=== PATIENT | female | born 1985 | race African-American/Black ===

== ENCOUNTER 2016-04-11 11:45 | Emergency (ER) | payer MEDICAID, OTHER ==
[~2016-04-11] VITALS: Ht 160 cm; Wt 65.9 kg
[2016-04-11 11:47] VITALS: BP 125/73; PULSE 78; RESP 18; TEMP 97.4; O2SAT 98
--- NOTE | 2016-04-11 11:53 | PD ---
Physical Exam Time Seen by Provider: 11:50 Narrative 30 year old female presents to the ED for evaluation of vaginal bleeding since Mar 28 with previous menses 03/16-03/24. Pt is have lower abdominal pain with urinary frequency. No burning of urgency. No significant medical history . Pt states she has history of tubal ligation 01/2013. Fever 101 last night with chills. Nausea and vomiting started last night as well. Pt is sexually active in a monogamous relationship. Data Data Last Documented VS Vital Signs Date Time Temp Pulse Resp B/P Pulse Ox O2 Delivery O2 Flow Rate FiO2 04/11/16 11:47 97.4 78 18 125/73 98 Room Air Orders Basic Metabolic Panel (Bmp) (04/11/16 11:53) Beta Hcg (Quant/Titer) (04/11/16 11:53) Complete Blood Count With Diff (04/11/16 11:53) Prothrombin Time / Inr (Pt) (04/11/16 11:53) Act Partial Throm Time (Ptt) (04/11/16 11:53) Urinalysis - C+S If Indicated (04/11/16 11:53) Ed Urine Pregnancytest Poc (04/11/16 11:53) Type And Screen (04/11/16 11:53) Urine Culture (04/11/16 12:10) Us Pelvis Comp Crimping Machine Operator For Metal/Non-Preg (04/11/16 ) Ketorolac Inj (Toradol Inj) (04/11/16 16:15) Labs Laboratory Tests Test 04/11/16 12:10 White Blood Count 3.8 TH/MM3 Red Blood Count 4.04 MIL/MM3 Hemoglobin 12.0 GM/DL Hematocrit 36.0 % Mean Corpuscular Volume 89.2 FL Mean Corpuscular Hemoglobin 29.6 PG Mean Corpuscular Hemoglobin 33.2 % Concent Red Cell Distribution Width 14.2 % Platelet Count 322 TH/MM3 Mean Platelet Volume 7.4 FL Neutrophils (%) (Auto) % Lymphocytes (%) (Auto) % Monocytes (%) (Auto) % Eosinophils (%) (Auto) % Basophils (%) (Auto) % Neutrophils # (Auto) TH/MM3 Lymphocytes # (Auto) TH/MM3 Monocytes # (Auto) TH/MM3 Eosinophils # (Auto) TH/MM3 Basophils # (Auto) TH/MM3 CBC Comment AUTO DIFF Differential Total Cells 100 Counted Neutrophils % (Manual) 53 % Lymphocytes % 30 % Monocytes % 12 % Eosinophils % 4 % Basophils % 1 % Neutrophils # (Manual) 2.0 TH/MM3 Differential Comment FINAL DIFF MANUAL Platelet Estimate NORMAL Platelet Morphology Comment NORMAL Prothrombin Time 11.6 SEC Prothromb Time International 1.0 RATIO Ratio Activated Partial 27.3 SEC Thromboplast Time Urine Color RED Urine Turbidity HAZY Urine pH 6.5 Urine Specific [place] 1.019 Urine Protein 100 mg/dL Urine Glucose (UA) NEG mg/dL Urine Ketones NEG mg/dL Urine Occult Blood MOD Urine Nitrite NEG Urine Bilirubin NEG Urine Urobilinogen LESS THAN 2.0 MG/DL Urine Leukocyte Esterase TRACE Urine RBC /hpf Urine WBC 31 /hpf Urine Squamous Epithelial 7 /hpf Cells Urine Bacteria RARE /hpf Microscopic Urinalysis Comment CULTURE INDICATED Sodium Level 141 MEQ/L Potassium Level 3.7 MEQ/L Chloride Level 108 MEQ/L Carbon Dioxide Level 25.2 MEQ/L Anion Gap 8 MEQ/L Blood Urea Nitrogen 9 MG/DL Creatinine 0.63 MG/DL Estimat Glomerular Filtration 111 ML/MIN Rate Random Glucose 83 MG/DL Calcium Level 8.8 MG/DL Human Chorionic Gonadotropin, LESS THAN 1 Quant MIU/ML Blood Type O POSITIVE Antibody Screen NEGATIVE Blood Bank Comment [facility] Medical Record Reviewed: Yes Supervised Visit with MAJOR: No Narrative Course Work up initiated in triage. Scripts Phenazopyridine (Pyridium)100 Mg [id number] Mg PO Q8H PRN (DYSURIA) #20 TAB Ref 0 Prov:Nancy OrdoñezP 04/11/16 Ibuprofen 800 Mg [id number] Mg PO Q6HR PRN (PAIN) #30 TAB Ref 0 Prov:Nancy OrdoñezP 04/11/16 Medroxyprogesterone Acetate (Provera)10 Mg Tab10 Mg PO DAILY #10 TAB Ref 0 Start day 16 Prov:Nancy OrdoñezP 04/11/16 Cephalexin (Keflex)500 Mg [id number] Mg PO Q12H 7 Days Ref 0 Prov:Nancy Ordoñez 04/11/16 Condition: Stable Carmen Padron Apr 11, 2016 11:53
[2016-04-11 12:34] LABS: MEAN CELL VOLUME 89.2 FL (80.0-100.0); MEAN CORPUSCULAR HEMOGLOBIN 29.6 PG (27.0-34.0); MEAN CORPUSCULAR HGB CONC 33.2 % (32.0-36.0); PLATELET COUNT 322 TH/MM3 (150-450); RED BLOOD COUNT 4.04 MIL/MM3 (4.00-5.30); RED CELL DISTRIBUTION WIDTH 14.2 % (11.6-17.2); WHITE BLOOD COUNT 3.8 TH/MM3 (4.0-11.0)
[2016-04-11 12:38] LABS: BACTERIA, URINE RARE /hpf; BLOOD, URINE MOD (NEG); GLUCOSE,URINE NEG (NEG); HEMO FLAGS AUTO DIFF; KETONE, URINE NEG (NEG); NITRITE,URINE NEG (NEG); PH, URINE 6.5 (5.0-8.5); SQUAMOUS EPITHELIAL CELL URINE 7 /hpf (0-5)
[2016-04-11 12:41] LABS: APTT (PATIENT) 27.3 SEC (24.3-30.1); COMMENT (UR) CULTURE INDICATED; CULTURE IF INDICATED CULTURE INDICATED; PROTHROMBIN TIME - PATIENT 11.6 SEC (9.8-11.6); URINE COLOR RED (YELLW/STRAW)
[2016-04-11 12:54] LABS: ANION GAP 8 MEQ/L (5-15); BICARBONATE 25.2 MEQ/L (21.0-32.0); BLOOD UREA NITROGEN 9 MG/DL (7-18); CHLORIDE 108 MEQ/L (98-107); GLOMERULAR FILTRATION RATE 111 ML/MIN (>89); POTASSIUM 3.7 MEQ/L (3.5-5.1); SODIUM (NA) 141 MEQ/L (136-145)
[2016-04-11 12:56] LABS: BETA HCG QUANT LESS THAN 1 MIU/ML (0-5)
[2016-04-11 13:14] LABS: BASOPHILS 1 % (0-2); EOSINOPHILS 4 % (0-4); PLATELET ESTIMATE SMEAR NORMAL (NORMAL); PLATELET MORPHOLOGY NORMAL (NORMAL); POLYS (SEG NEUTROPHILS) 53 % (16-70); SCAN/DIFF FINAL DIFF MANUAL; WBC DIFF SAMPLE 100
--- NOTE | 2016-04-11 14:45 | RADRPT ---
EXAM DATE/TIME: 04/11/2016 14:03 [facility] COMPARISON: No previous studies available for comparison. INDICATIONS : Bleeding. MEDICAL HISTORY : Bleeding. SURGICAL HISTORY : Tubal ligation. section. Cholecystectomy. Ovarian cyst removal. ENCOUNTER: Initial ACUITY: 2 weeks PAIN SCORE: 7/10 LOCATION: Bilateral pelvis MEASUREMENTS: UTERUS: 6.6 x 4.9 x 4.9 cm ENDOMETRIAL STRIPE: 1 mm RIGHT OVARY: 2.1 x 1.2 x 1.1 cm LEFT OVARY: 3.1 x 1.7 x 1.6 cm FINDINGS: UTERUS: The myometrium has homogeneous echotexture without mass. RIGHT OVARY: Ovary contains no mass or significant cystic lesion. LEFT OVARY: Ovary contains no mass or significant cystic lesion. MISCELLANEOUS: No free fluid. CONCLUSION: The endometrium appears atrophic. The exam is otherwise unremarkable. Tressa Otero MD on April 11, 2016 at 14:42 Board Certified Radiologist. This report was verified electronically.
--- NOTE | 2016-04-11 16:01 | PD ---
HPI Chief Complaint: Surgical Coordinator Problem/Complaint Time Seen by Provider: 16:01 Travel History International Travel<30 days: No Contact w/Intl Traveler<30days: No Traveled to known affect area: No History of Present Illness HPI 30-year-old female presents to the emergency Department with complaint of lower abdominal pain and vaginal bleeding since March 28. She says she normally has 2 periods per month but they never last this long. Her last menstrual period started on March 16 and ended on March 24 and then restarted on April 17. She denies dysuria, hematuria, urgency. Reports urinary frequency. She is sexually active with one partner but has not had sexual intercourse in it while. Denies risk of . Tubal ligation in 2012. She is not on control. She has soaked through 8 large pads today in the last 10 hours. She is complaining of weakness, fatigue, lightheadedness, dizziness. She is also complaining of low back pain. Denies vaginal odor, itch, lesions. Reports a fever for 101 last night and vomited. Reports vomiting also this morning. Denies history of kidney stones. Dr. Sharpe is her primary care provider and was told to come to the ER because she has not been seen by him yet. No known allergies. No significant medical history. Smokes approximately 3 cigarettes per day. PFSH Past Medical History Medical History: Denies Significant Hx ?: Not LMP: 03/24/2016 Social History Tobacco Use: Yes (3/day) Allergies-Medications (Allergen,Severity, Reaction): Coded Allergies: No Known Allergies (Unverified , 04/11/16) Reported Meds & Prescriptions Reported Meds & Active Scripts Active Pyridium (Phenazopyridine HCl) 100 Mg Tab 100 Mg PO Q8H PRN Ibuprofen 800 Mg Tab 800 Mg PO Q6HR PRN Provera (Medroxyprogesterone Acetate) 10 Mg Tab 10 Mg PO DAILY Start day 16 Keflex (Cephalexin) 500 Mg Cap 500 Mg PO Q12H 7 Days Review of Systems Except as stated in HPI: all other systems reviewed are Neg Physical Exam Narrative GENERAL: Well-nourished, well-developed female female patient, in no acute distress SKIN: Warm and dry. No rash. HEAD: Atraumatic. Normocephalic. EYES: Pupils equal and round. No scleral icterus. No injection or drainage. ENT: Mucosa pink and moist. NECK: Trachea midline. CARDIOVASCULAR: Regular rate and rhythm. No murmur appreciated. RESPIRATORY: No accessory muscle use. Clear to auscultation. Breath sounds equal bilaterally. GASTROINTESTINAL: Abdomen soft, tenderness to lower abdomen; greater on R than L , nondistended. Hepatic and splenic margins not palpable. Bowel sounds are active 4 quadrants. Bladder nontender and nondistended. PELVIC: Bright red drainage visualized coming from the vaginal vault. MUSCULOSKELETAL: No obvious deformities. No clubbing. No cyanosis. No edema. BACK: Right CVA tenderness NEUROLOGICAL: Awake and alert. Oriented 3. No obvious cranial nerve deficits. Motor grossly within normal limits. Normal speech. Moves all extremities. 5/5 strength to all extremities. PSYCHIATRIC: Appropriate mood and affect; insight and judgment normal. Data Data Last Documented VS Vital Signs Date Time Temp Pulse Resp B/P Pulse Ox O2 Delivery O2 Flow Rate FiO2 04/11/16 11:47 97.4 78 18 125/73 98 Room Air Orders Basic Metabolic Panel (Bmp) (04/11/16 11:53) Beta Hcg (Quant/Titer) (04/11/16 11:53) Complete Blood Count With Diff (04/11/16 11:53) Prothrombin Time / Inr (Pt) (04/11/16 11:53) Act Partial Throm Time (Ptt) (04/11/16 11:53) Urinalysis - C+S If Indicated (04/11/16 11:53) Ed Urine Pregnancytest Poc (04/11/16 11:53) Type And Screen (04/11/16 11:53) Urine Culture (04/11/16 12:10) Us Pelvis Comp Surgical Coordinator/Non-Preg (04/11/16 ) Ketorolac Inj (Toradol Inj) (04/11/16 16:15) Labs Laboratory Tests Test 04/11/16 12:10 White Blood Count 3.8 TH/MM3 Red Blood Count 4.04 MIL/MM3 Hemoglobin 12.0 GM/DL Hematocrit 36.0 % Mean Corpuscular Volume 89.2 FL Mean Corpuscular Hemoglobin 29.6 PG Mean Corpuscular Hemoglobin 33.2 % Concent Red Cell Distribution Width 14.2 % Platelet Count 322 TH/MM3 Mean Platelet Volume 7.4 FL Neutrophils (%) (Auto) % Lymphocytes (%) (Auto) % Monocytes (%) (Auto) % Eosinophils (%) (Auto) % Basophils (%) (Auto) % Neutrophils # (Auto) TH/MM3 Lymphocytes # (Auto) TH/MM3 Monocytes # (Auto) TH/MM3 Eosinophils # (Auto) TH/MM3 Basophils # (Auto) TH/MM3 CBC Comment AUTO DIFF Differential Total Cells 100 Counted Neutrophils % (Manual) 53 % Lymphocytes % 30 % Monocytes % 12 % Eosinophils % 4 % Basophils % 1 % Neutrophils # (Manual) 2.0 TH/MM3 Differential Comment FINAL DIFF MANUAL Platelet Estimate NORMAL Platelet Morphology Comment NORMAL Prothrombin Time 11.6 SEC Prothromb Time International 1.0 RATIO Ratio Activated Partial 27.3 SEC Thromboplast Time Urine Color RED Urine Turbidity HAZY Urine pH 6.5 Urine Specific [place] 1.019 Urine Protein 100 mg/dL Urine Glucose (UA) NEG mg/dL Urine Ketones NEG mg/dL Urine Occult Blood MOD Urine Nitrite NEG Urine Bilirubin NEG Urine Urobilinogen LESS THAN 2.0 MG/DL Urine Leukocyte Esterase TRACE Urine RBC /hpf Urine WBC 31 /hpf Urine Squamous Epithelial 7 /hpf Cells Urine Bacteria RARE /hpf Microscopic Urinalysis Comment CULTURE INDICATED Sodium Level 141 MEQ/L Potassium Level 3.7 MEQ/L Chloride Level 108 MEQ/L Carbon Dioxide Level 25.2 MEQ/L Anion Gap 8 MEQ/L Blood Urea Nitrogen 9 MG/DL Creatinine 0.63 MG/DL Estimat Glomerular Filtration 111 ML/MIN Rate Random Glucose 83 MG/DL Calcium Level 8.8 MG/DL Human Chorionic Gonadotropin, LESS THAN 1 Quant MIU/ML Blood Type O POSITIVE Antibody Screen NEGATIVE Blood Bank Comment [facility] Medical Decision Making Medical Screen Exam Complete: Yes Emergency Medical Condition: Yes Medical Record Reviewed: Yes Differential Diagnosis Menorrhagia, urinary tract infection, pyelonephritis, ectopic , miscarriage Narrative Course 30-year-old female with vaginal bleeding and lower abdominal pain 2 weeks. Pelvic ultrasound concludes: Last 24 hours Impressions Pelvis Ultrasound 04/11/16 0000 Signed Impressions: Service Date/Time: Monday, April 11, 2016 14:03 - CONCLUSION: The endometrium appears atrophic. The exam is otherwise unremarkable. Tressa Otero MD CBC unremarkable. Coags unremarkable. BMP unremarkable. HCG less than 1. Urinalysis with innumerable RBCs and signs of infection. Toradol administered in the ER. Keflex, ibuprofen, Provera, and Pyridium prescribed for home. Instructed patient to follow up with audiovisual aids technician. Patient agrees with treatment plan. Patient is medically cleared and stable for discharge. Discussed reasons to return to the emergency department. Instructed patient to follow up with primary care provider. Patient agrees with treatment plan. The patients vital signs are stable and the patient is stable for outpatient follow- up and treatment. Patient discharged home, stable and in no acute distress. Diagnosis Primary Impression: Menorrhagia Qualified Code: N92.1 - Menorrhagia with irregular cycle Additional Impression: UTI (urinary tract infection) Qualified Code: N39.0 - Urinary tract infection with hematuria, site unspecified Referrals: Sheet Metal Erector Primary Care Physician Patient Instructions: General Instructions, Menorrhagia (ED), Urinary Tract Infection in Women (ED) Additional Instructions: Take antibiotics as prescribed and complete full course Take Pyridium for bladder spasms: Pyridium will turn your urine bright orange Drink plenty of fluids Maintain good personal hygiene Follow-up with primary care provider Follow up with audiovisual aids technician Return to the emergency department immediately with worsening of symptoms Med/Other Pt SpecificInfo: Prescription(s) given Scripts Phenazopyridine (Pyridium)100 Mg [id number] Mg PO Q8H PRN (DYSURIA) #20 TAB Ref 0 Prov:Nancy OrdoñezP 04/11/16 Ibuprofen 800 Mg [id number] Mg PO Q6HR PRN (PAIN) #30 TAB Ref 0 Prov:Nancy OrdoñezP 04/11/16 Medroxyprogesterone Acetate (Provera)10 Mg Tab10 Mg PO DAILY #10 TAB Ref 0 Start day 16 Prov:Nancy OrdoñezP 04/11/16 Cephalexin (Keflex)500 Mg [id number] Mg PO Q12H 7 Days Ref 0 Prov:Nancy OrdoñezP 04/11/16 Disposition: 01 DISCHARGE HOME Condition: Stable Nancy Ordoñez Apr 11, 2016 16:01
[2016-04-11] MEDS ORDERED: PROV10TA PO (16:09)
[2016-04-11] MEDS ORDERED: CEPH-460 PO (16:09)
[2016-04-11] MEDS ORDERED: IBUP800T23 PO (16:09)
[2016-04-11] MEDS ORDERED: PHEN0.4T PO (16:10)
[2016-04-11] MEDS ORDERED: KETOROLAC TROMETHAMINE 60 MG/2 ML (IM) VIAL IM ONE (16:15)
== END 2016-04-11 17:03 | disposition home or self-care (01) ==
LOC: NEPB 11:45
DX: N92.0 Excessive and frequent menstruation with regular cycle (principal); N39.0 Urinary tract infection, site not specified; F17.210 Nicotine dependence, cigarettes, uncomplicated
CPT/HCPCS: 76856; 80048; 81001; 84702; 84703; 85007; 85027; 85610; 85730; 86850; 86900; 86901; 87086; 96372; 99284; J1885

== ENCOUNTER 2016-11-14 22:25 | Emergency (ER) | payer MEDICAID, OTHER ==
[~2016-11-14] VITALS: Ht 157.5 cm; Wt 80.0 kg
[~2016-11-14 22:25] MED LIST: CEPH-460 PO; IBUP800T23 PO; PHEN0.4T PO; PROV10TA PO
[2016-11-14 22:27] VITALS: BP 131/71; PULSE 76; RESP 16; TEMP 97.9; O2SAT 100
[2016-11-15 00:28] VITALS: BP 109/58; PULSE 65; RESP 12; O2SAT 98
[2016-11-15] MEDS ORDERED: PROCHLORPERAZINE INJ 10 MG/2 ML VIAL IV PUSH ONE (00:45)
[2016-11-15] MEDS ORDERED: diphenhydrAMINE HCL 50 MG/ML VIAL IV PUSH ONE (00:45)
[2016-11-15] MEDS ORDERED: SODIUM CHLOR 0.9% 1000 ML INJ 1,000 ML IV ONE (00:45)
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
== END 2016-11-15 02:05 | disposition home or self-care (01) ==
LOC: NEPD 22:25
DX: R51 Headache (principal); F17.200 Nicotine dependence, unspecified, uncomplicated
CPT/HCPCS: 96361; 96374; 96375; 99284; J0780; J1200; J7030

== ENCOUNTER 2017-01-02 10:04 | Emergency (ER) | payer MEDICAID ==
[~2017-01-02] VITALS: Ht 157.5 cm; Wt 66.0 kg
[2017-01-02] MEDS ORDERED: IOHEXOL 350 MG/ML 10 ML VIAL (for RAD DIAG) IVCONTRAST ONE (10:05)
[2017-01-02 10:07] VITALS: BP 132/75; PULSE 102; RESP 18; TEMP 99.7; O2SAT 96
[2017-01-02] MEDS ORDERED: KETOROLAC TROMETHAMINE 30 MG/ML (IVP) VIAL IV PUSH ONE (11:30)
[2017-01-02] MEDS ORDERED: SODIUM CHLORIDE 0.9% FLUSH 10 ML FLUSH IVF PRN (11:30)
--- NOTE | 2017-01-02 11:43 | PD ---
HPI Chief Complaint: Chest Pain Time Seen by Provider: 11:02 Travel History International Travel<30 days: No Contact w/Intl Traveler<30days: No Traveled to known affect area: No History of Present Illness HPI Patient's 31-year-old female presents emergency department for evaluation of chest pain shortness of breath and mild hemoptysis. The patient states symptoms been going on for the past few days and gradually worsening. Denies history of blood clots denies a history of blood thinner use. Denies history of long trips a family history of blood clots. Denies any fevers. Patient states that she is only having blood streaking in the mucus. Symptoms are mild , gradually worsening, over the past few days, associated signs symptoms as above. PFSH Past Medical History Medical History: Denies Significant Hx Tetanus Vaccination: < 5 Years ?: Not LMP: 01/01/17 Tubal Ligation: Yes Past Surgical History Section: Yes Social History Alcohol Use: No Tobacco Use: Yes (3/day) Substance Use: No Allergies-Medications (Allergen,Severity, Reaction): Coded Allergies: No Known Allergies (Unverified , 01/02/17) Reported Meds & Prescriptions Reported Meds & Active Scripts Active Tessalon Perles (Benzonatate) 100 Mg Cap 100 Mg PO TID PRN Prednisone 20 Mg Tab 60 Mg PO DAILY 5 Days Azithromycin 250 Mg Tab 250 Mg PO DIRECTED Take 2 tabs (500 mg) on day 1 then 1 tab daily x 4 days. Review of Systems Except as stated in HPI: all other systems reviewed are Neg Physical Exam Narrative GENERAL: Well-developed well-nourished no obvious distress SKIN: Focused skin assessment warm/dry. HEAD: Atraumatic. Normocephalic. EYES: Pupils equal and round. No scleral icterus. No injection or drainage. ENT: No nasal bleeding or discharge. Mucous membranes pink and moist. NECK: Trachea midline. No JVD. CARDIOVASCULAR: Regular rate and rhythm. No murmur appreciated. RESPIRATORY: No accessory muscle use. Clear to auscultation. Breath sounds equal bilaterally. GASTROINTESTINAL: Abdomen soft, non-tender, nondistended. Hepatic and splenic margins not palpable. MUSCULOSKELETAL: No obvious deformities. No clubbing. No cyanosis. No edema. NEUROLOGICAL: Awake and alert. No obvious cranial nerve deficits. Motor grossly within normal limits. Normal speech. PSYCHIATRIC: Appropriate mood and affect; insight and judgment normal. Data Data Last Documented VS Vital Signs Date Time Temp Pulse Resp B/P (MAP) Pulse Ox O2 Delivery O2 Flow Rate FiO2 01/02/17 16:19 17 01/02/17 11:44 Room Air 01/02/17 11:44 99 01/02/17 10:07 99.7 102 Orders Orders Electrocardiogram (01/02/17 ) Basic Metabolic Panel (Bmp) (01/02/17 11:17) Ckmb (Isoenzyme) Profile (01/02/17 11:17) Complete Blood Count With Diff (01/02/17 11:17) D-Dimer (01/02/17 11:17) Magnesium (Mg) (01/02/17 11:17) Prothrombin Time / Inr (Pt) (01/02/17:17) Act Partial Throm Time (Ptt) (01/02/17 11:17) Troponin I (01/02/17 11:17) Ecg Monitoring (01/02/17 11:17) Iv Access Insert/Monitor (01/02/17 11:17) Oximetry (01/02/17 11:17) Oxygen Administration (01/02/17 11:17) Sodium Chloride 0.9% Flush (Ns Flush) (01/02/17 11:30) Chest, Pa & Lat (01/02/17 11:17) Ketorolac Inj (Toradol Inj) (01/02/17 11:30) CKMB (01/02/17 11:20) CKMB% (01/02/17 11:20) Ct Pulmonary Angiogram (01/02/17 ) Iohexol 350 Inj (Omnipaque 350 Inj) (01/02/17 10:05) Labs Laboratory Tests Test 01/02/17 11:20 01/02/17 11:55 White Blood Count 10.7 TH/MM3 Red Blood Count 4.12 MIL/MM3 Hemoglobin 11.9 GM/DL Hematocrit 36.3 % Mean Corpuscular Volume 88.0 FL Mean Corpuscular Hemoglobin 28.9 PG Mean Corpuscular Hemoglobin Concent 32.8 % Red Cell Distribution Width 14.2 % Platelet Count 302 TH/MM3 Mean Platelet Volume 7.3 FL Neutrophils (%) (Auto) 85.5 % Lymphocytes (%) (Auto) 5.1 % Monocytes (%) (Auto) 8.5 % Eosinophils (%) (Auto) 0.3 % Basophils (%) (Auto) 0.6 % Neutrophils # (Auto) 9.2 TH/MM3 Lymphocytes # (Auto) 0.5 TH/MM3 Monocytes # (Auto) 0.9 TH/MM3 Eosinophils # (Auto) 0.0 TH/MM3 Basophils # (Auto) 0.1 TH/MM3 CBC Comment DIFF FINAL Differential Comment Blood Urea Nitrogen 10 MG/DL Creatinine 0.61 MG/DL Random Glucose 93 MG/DL Calcium Level 9.1 MG/DL Magnesium Level 1.8 MG/DL Sodium Level 136 MEQ/L Potassium Level 3.6 MEQ/L Chloride Level 104 MEQ/L Carbon Dioxide Level 22.2 MEQ/L Anion Gap 10 MEQ/L Estimat Glomerular Filtration Rate 138 ML/MIN Total Creatine Kinase 172 U/L Creatine Kinase MB 0.8 NG/ML Troponin I LESS THAN 0.02 NG/ML Prothrombin Time 12.4 SEC Prothromb Time International Ratio 1.1 RATIO Activated Partial Thromboplast Time 28.0 SEC D-Dimer Quantitative (PE/DVT) 0.51 MG/L FEU MDM Medical Decision Making Medical Screen Exam Complete: Yes Emergency Medical Condition: Yes Differential Diagnosis PE, bronchitis, pneumonia, low risk for TB. Narrative Course Patient roomed emergency department, likely this represents a bronchitis, however the patient was tachycardic out in triage cannot completely exclude PE. D-dimer was sent which was my elevated. Patient's CT chest was negative. Discussed the patient likely bronchitis need for outpatient management. Discussed return to ED criteria follow-up with primary care physician. Patient' s labs were obtained and were reassuring. Slight left shift on differential. Diagnosis Primary Impression: Hemoptysis Additional Impression: Bronchitis Patient Instructions: General Instructions, Hemoptysis (ED), How to Stop Smoking (DC) Med/Other Pt SpecificInfo: Prescription(s) given Scripts Benzonatate (Tessalon Perles) 100 Mg Cap 100 MG PO TID Y for COUGH, #20 CAP 0 Refills Prov: Liborio Boyle MD 01/02/17 Prednisone (Prednisone) 20 Mg Tab 60 MG PO DAILY for 5 Days, #15 TAB 0 Refills Prov: Liborio Boyle MD 01/02/17 Azithromycin (Azithromycin) 250 Mg Tab 250 MG PO DIRECTED for Infection, #6 TAB 0 Refills Take 2 tabs (500 mg) on day 1 then 1 tab daily x 4 days. Prov: Liborio Boyle MD 01/02/17 Disposition: 01 DISCHARGE HOME Condition: Stable Liborio Boyle MD Jan 02, 2017 11:43
[2017-01-02 11:44] VITALS: O2SAT 99
--- NOTE | 2017-01-02 11:48 | RADRPT ---
EXAM DATE/TIME: 01/02/2017 11:42 [facility] COMPARISON: No previous studies available for comparison. INDICATIONS : Chest pain. MEDICAL HISTORY : None. SURGICAL HISTORY : None. ENCOUNTER: Initial ACUITY: 1 day PAIN SCORE: 8/10 LOCATION: chest middle FINDINGS: PA and lateral views of the chest demonstrate the lungs to be symmetrically aerated without evidence of mass, infiltrate or effusion. The cardiomediastinal contours are unremarkable. Osseous structure s are intact. CONCLUSION: No acute disease. Teddy Ritchie MD FACR on January 02, 2017 at 11:46 Board Certified Radiologist. This report was verified electronically.
[2017-01-02 11:51] LABS: AUTOMATED NEUTROPHIL # 9.2 TH/MM3 (1.8-7.7); BASOPHIL # 0.1 TH/MM3 (0-0.2); BASOPHIL % 0.6 % (0.0-2.0); EOSINOPHIL % 0.3 % (0.0-4.0); HEMATOCRIT 36.3 % (35.0-46.0); HEMO FLAGS DIFF FINAL; LYMPH % 5.1 % (9.0-44.0); LYMPHOCYTE # 0.5 TH/MM3 (1.0-4.8); MEAN CORPUSCULAR HEMOGLOBIN 28.9 PG (27.0-34.0); MEAN CORPUSCULAR HGB CONC 32.8 % (32.0-36.0); MONO % 8.5 % (0.0-8.0); NEUT % 85.5 % (16.0-70.0); PLATELET COUNT 302 TH/MM3 (150-450); RED BLOOD COUNT 4.12 MIL/MM3 (4.00-5.30); RED CELL DISTRIBUTION WIDTH 14.2 % (11.6-17.2); WHITE BLOOD COUNT 10.7 TH/MM3 (4.0-11.0)
[2017-01-02 12:05] LABS: ANION GAP 10 MEQ/L (5-15); BICARBONATE 22.2 MEQ/L (21.0-32.0); BLOOD UREA NITROGEN 10 MG/DL (7-18); CHLORIDE 104 MEQ/L (98-107); GLOMERULAR FILTRATION RATE 138 ML/MIN (>89); MAGNESIUM 1.8 MG/DL (1.5-2.5); POTASSIUM 3.6 MEQ/L (3.5-5.1); SODIUM (NA) 136 MEQ/L (136-145)
[2017-01-02 12:09] LABS: CREATINE KINASE 172 U/L (26-192)
[2017-01-02 12:21] LABS: CKMB 0.8 NG/ML (0.5-3.6)
[2017-01-02 12:24] LABS: INTERNATIONAL NORMALIZED RATIO 1.1 RATIO; PROTHROMBIN TIME - PATIENT 12.4 SEC (9.8-11.6)
--- NOTE | 2017-01-02 14:36 | EKG ---
Date Performed: 01/02/2017 Time Performed: 10:17:55 PTAGE: 31 years EKG: Sinus rhythm POSSIBLE RIGHT VENTRICULAR CONDUCTION DELAY BORDERLINE ECG NO PREVIOUS TRACING DOCTOR: Ben Perrin Interpretating Date/Time 01/02/2017 14:35:52
--- NOTE | 2017-01-02 15:30 | RADRPT ---
EXAM DATE/TIME: 01/02/2017 15:10 [facility] COMPARISON: No previous studies available for comparison. INDICATIONS : Short of breath, embolism. IV CONTRAST: 65 cc Omnipaque 350 (iohexol) IV RADIATION DOSE: 23.04 CTDIvol (mGy) MEDICAL HISTORY : None SURGICAL HISTORY : Tubal ligation. section. ENCOUNTER: Initial ACUITY: 1 day PAIN SCALE: 6/10 LOCATION: Bilateral chest TECHNIQUE: Volumetric scanning of the chest was performed using a pulmonary embolism protocol MIP images were re constructed. Using automated exposure control and adjustment of the mA and/or kV according to patien t size, radiation dose was kept as low as reasonably achievable to obtain optimal diagnostic quality images. DICOM format image data is available electronically for review and comparison. Follow-up recommendations for detected pulmonary nodules are based at a minimum on nodule size and pa tient risk factors according to Fleischner Society Guidelines. FINDINGS: PULMONARY ARTERIES: No filling defects are seen in the pulmonary arteries through the segmental level. LUNGS: There is no consolidation or pneumothorax . No concerning pulmonary nodule is visualized. PLEURAE: There is no pleural thickening or pleural effusion. MEDIASTINUM: There is good visualization of the great vessels of the middle mediastinum. No evidence of mediastin al or hilar adenopathy/mass. MUSCULOSKELETAL: Within normal limits for patient age. MISCELLANEOUS: The visualized upper abdominal organs demonstrate no acute abnormality. CONCLUSION: 1. No evidence of pulmonary embolism. Nilesh Alejo MD on January 02, 2017 at 15:27 Board Certified Radiologist. This report was verified electronically.
[2017-01-02] MEDS ORDERED: AZIT250T3 PO (15:45)
[2017-01-02] MEDS ORDERED: PRED20 PO (15:45)
[2017-01-02] MEDS ORDERED: BENZ100 PO (15:46)
[2017-01-02 16:19] VITALS: RESP 17
== END 2017-01-02 16:46 | disposition home or self-care (01) ==
LOC: NEPD 10:04
DX: R04.2 Hemoptysis (principal); J40 Bronchitis, not specified as acute or chronic; F17.200 Nicotine dependence, unspecified, uncomplicated; R00.0 Tachycardia, unspecified
CPT/HCPCS: 71020; 71275; 80048; 82550; 82552; 83735; 84484; 85025; 85379; 85610; 85730; 93005; 96374; 99285; J1885; Q9967

== ENCOUNTER 2017-04-25 23:38 | Emergency (ER) | payer MEDICAID ==
[~2017-04-25] VITALS: Ht 157.5 cm; Wt 65.0 kg
[~2017-04-25 23:38] MED LIST changes: +AZIT250T3 PO; +BENZ100 PO; -CEPH-460 PO; -IBUP800T23 PO; -PHEN0.4T PO; +PRED20 PO; -PROV10TA PO
[2017-04-25 23:42] VITALS: BP 125/74; PULSE 90; RESP 18; TEMP 98.3; O2SAT 100
[2017-04-26] MEDS ORDERED: SODIUM CHLOR 0.9% 1000 ML INJ 1,000 ML IV SCH (00:42)
[2017-04-26] MEDS ORDERED: MORPHINE SULFATE 2 MG/ML INJ IV PUSH ONE ×2 (00:45)
[2017-04-26] MEDS ORDERED: SODIUM CHLORIDE 0.9% FLUSH 10 ML FLUSH IV FLUSH PRN (00:45)
[2017-04-26] MEDS ORDERED: ONDANSETRON HCL 4 MG/2 ML VIAL IVP ONE (00:45)
[2017-04-26 00:58] VITALS: O2SAT 100
[2017-04-26 01:01] LABS: BILIRUBIN, URINE NEG (NEG); BLOOD, URINE NEG (NEG); GLUCOSE,URINE NEG (NEG); KETONE, URINE TRACE mg/dL (NEG); NITRITE,URINE NEG (NEG); PH, URINE 7.5 (5.0-8.5); SQUAMOUS EPITHELIAL CELL URINE 3 /hpf (0-5); URINE COLOR LIGHT-YELLOW (YELLW/STRAW); URINE LEUKOCYTE ESTERASE NEG (NEG)
[2017-04-26 01:02] LABS: AUTOMATED NEUTROPHIL # 3.5 TH/MM3 (1.8-7.7); BASOPHIL # 0.1 TH/MM3 (0-0.2); BASOPHIL % 1.6 % (0.0-2.0); EOSINOPHIL # 0.1 TH/MM3 (0-0.4); EOSINOPHIL % 1.6 % (0.0-4.0); HEMATOCRIT 31.5 % (35.0-46.0); HEMOGLOBIN 10.7 GM/DL (11.6-15.3); LYMPHOCYTE # 1.7 TH/MM3 (1.0-4.8); MEAN CELL VOLUME 84.5 FL (80.0-100.0); MEAN CORPUSCULAR HEMOGLOBIN 28.8 PG (27.0-34.0); MEAN CORPUSCULAR HGB CONC 34.1 % (32.0-36.0); MEAN PLATELET VOLUME 7.5 FL (7.0-11.0); MONO % 12.4 % (0.0-8.0); MONOCYTE # 0.8 TH/MM3 (0-0.9); NEUT % 57.4 % (16.0-70.0); PLATELET COUNT 363 TH/MM3 (150-450); RED BLOOD COUNT 3.73 MIL/MM3 (4.00-5.30); RED CELL DISTRIBUTION WIDTH 14.8 % (11.6-17.2); WHITE BLOOD COUNT 6.1 TH/MM3 (4.0-11.0)
[2017-04-26 01:14] LABS: ALT (GPT) 15 U/L (10-53); AST (GOT) 16 U/L (15-37); BICARBONATE 22.2 MEQ/L (21.0-32.0); BLOOD UREA NITROGEN 13 MG/DL (7-18); CALCIUM 8.9 MG/DL (8.5-10.1); CHLORIDE 108 MEQ/L (98-107); CREATININE 0.82 MG/DL (0.50-1.00); GLOMERULAR FILTRATION RATE 98 ML/MIN (>89); GLUCOSE,RANDOM 94 MG/DL (74-106); SODIUM (NA) 141 MEQ/L (136-145)
[2017-04-26 01:16] LABS: ALKALINE PHOSPHATASE 53 U/L (45-117); TOTAL BILIRUBIN ADULT 0.2 MG/DL (0.2-1.0); TOTAL PROTEIN 7.5 GM/DL (6.4-8.2)
[2017-04-26] MEDS ORDERED: IOHEXOL 350 MG/ML 10 ML VIAL (for RAD DIAG) IVCONTRAST ONE (01:57)
--- NOTE | 2017-04-26 02:11 | RADRPT ---
EXAM DATE/TIME: 04/26/2017 01:47 [facility] COMPARISON: No previous studies available for comparison. INDICATIONS : Right lower quadrant pain. IV CONTRAST: 100 cc Omnipaque 350 (iohexol) IV ORAL CONTRAST: No oral contrast ingested. RADIATION DOSE: 6.64 CTDIvol (mGy) MEDICAL HISTORY : Ovarian cysts. SURGICAL HISTORY : Cholecystectomy. Tubal ligation. ENCOUNTER: Initial ACUITY: 2 days PAIN SCALE: 10/10 LOCATION: Right lower quadrant TECHNIQUE: Volumetric scanning of the abdomen and pelvis was performed. Using automated exposure control and ad justment of the mA and/or kV according to patient size, radiation dose was kept as low as reasonably achievable to obtain optimal diagnostic quality images. DICOM format image data is available electro nically for review and comparison. FINDINGS: Lung bases are clear. Osseous structures are intact. The patient is status post cholecystectomy. No e vidence of bowel obstruction. No pleural or pericardial effusions. Liver, spleen, pancreas, adrenals, kidneys are unremarkable. Urinary bladder unremarkable. There are tiny follicular cysts associated w ith the left ovary. The right ovary is enlarged. 2 masses are seen including a 2.7 x 3 cm mass and a 1.6 cm mass. A smaller mass corresponds to a simple cyst noted sonographically, the larger mass proba ble hemorrhagic cyst. No adenopathy or aneurysm. The appendix is normal. There are scattered colonic diverticuli. CONCLUSION: 2 right ovarian masses are noted as described above best assessed on today's ultrasound. Nilo Allan MD on April 26, 2017 at 2:06 Board Certified Radiologist. This report was verified electronically.
--- NOTE | 2017-04-26 02:53 | RADRPT ---
EXAM DATE/TIME: 04/26/2017 01:20 [facility] COMPARISON: US PELVIS - COMPLETE (IT SALES REPRESENTATIVE,NON-PREG), April 11, 2016, 14:03. INDICATIONS : Right sided pelvic pain. MEDICAL HISTORY : Ovarian cysts. Pelvic pain. Tobacco use. SURGICAL HISTORY : Cholecystectomy. Tubal ligation. section. Hernia repair. ENCOUNTER: Subsequent ACUITY: 1 day PAIN SCORE: 9/10 LOCATION: Bilateral pelvis MEASUREMENTS: UTERUS: 10.1 x 5.1 x 4.6 cm ENDOMETRIAL STRIPE: 10 mm RIGHT OVARY: 5.4 x 4.8 x 3.3 cm LEFT OVARY: 3.0 x 1.7 x 2.0 cm FINDINGS: UTERUS: The myometrium has homogeneous echotexture without mass. A sliver of fluid in the endometrial cavity is noted. RIGHT OVARY: Cyst is also present 5 x 3.1 cm hypoechoic nonvascular mass, possibly a hemorrhagic cyst, nonspecific . LEFT OVARY: Ovary contains no mass or significant cystic lesion. MISCELLANEOUS: No free fluid. CONCLUSION: 1. Simple cyst right ovary as well as a hypoechoic nonvascular mass possibly a hemorrhagic cyst. Six- week followup ultrasound recommended. 2. No free fluid. Nilo Allan MD on April 26, 2017 at 1:45 Board Certified Radiologist. This report was verified electronically.
[2017-04-26] MEDS ORDERED: KETOROLAC TROMETHAMINE 30 MG/ML (IVP) VIAL IV PUSH ONE (03:15)
[2017-04-26] MEDS ORDERED: NORC5TAB PO (03:59)
--- NOTE | 2017-04-26 03:59 | PD ---
HPI Chief Complaint: Abdominal Pain Time Seen by Provider: 00:36 Travel History International Travel<30 days: No Contact w/Intl Traveler<30days: No Traveled to known affect area: No History of Present Illness HPI Patient is a 31 year old female who comes in complaining of RLQ abdominal pain. She says it started around 8 tonight. She took some Ibuprofen without relief of her symptoms. She denies nausea or vomiting. She says she had pain like this in the past when she had an ovarian cyst. She denies fever or chills. Nothing seems to make her pain better or worse. [facility] Past Medical History Medical History: Denies Significant Hx Tetanus Vaccination: < 5 Years Influenza Vaccination: No ?: Not LMP: 04/13/17 IRREGULAR : 3 Para: 2 : 1 Tubal Ligation: Yes Past Surgical History Abdominal Surgery: Yes (HERNIA) Section: Yes Cholecystectomy: Yes Social History Alcohol Use: No Tobacco Use: Yes (3/day) Substance Use: No Allergies-Medications (Allergen,Severity, Reaction): Coded Allergies: No Known Allergies (Unverified Adverse Reaction, Unknown, 04/25/17) Reported Meds & Prescriptions Reported Meds & Active Scripts Active No Active Prescriptions or Reported Medications Review of Systems Except as stated in HPI: all other systems reviewed are Neg General / Constitutional: No: Fever, Chills HENT: No: Headaches, Lightheadedness Cardiovascular: No: Chest Pain or Discomfort Respiratory: No: Shortness of Breath Gastrointestinal: Positive: Abdominal Pain, No: Nausea, Vomiting Genitourinary: No: Dysuria, Discharge, Vaginal Bleeding Musculoskeletal: No: Myalgias, Edema Skin: No Rash, No Itching Neurologic: No: Weakness, Dizziness Physical Exam Narrative GENERAL: Awake and alert, in no acute distress. SKIN: Focused skin assessment warm/dry. HEAD: Atraumatic. Normocephalic. EYES: Pupils equal and round. No scleral icterus. ENT: Mucous membranes pink and moist. NECK: Trachea midline. No JVD. CARDIOVASCULAR: Regular rate and rhythm. No murmur appreciated. RESPIRATORY: No accessory muscle use. Clear to auscultation. Breath sounds equal bilaterally. GASTROINTESTINAL: Abdomen soft, nondistended. Tender to palpation of the RLQ, no rebound or guarding. MUSCULOSKELETAL: No obvious deformities. No clubbing. No cyanosis. No edema. NEUROLOGICAL: Awake and alert. No obvious cranial nerve deficits. Motor grossly within normal limits. Normal speech. PSYCHIATRIC: Appropriate mood and affect; insight and judgment normal. Data Data Last Documented VS Vital Signs Date Time Temp Pulse Resp B/P (MAP) Pulse Ox O2 Delivery O2 Flow Rate FiO2 04/26/17 00:58 100 Room Air 04/25/17 23:45 18 04/25/17 23:42 98.3 90 125/74 (91) Orders Orders Complete Blood Count With Diff (04/26/17 00:42) Comprehensive Metabolic Panel (04/26/17 00:42) Prothrombin Time / Inr (Pt) (04/26/17 00:42) Act Partial Throm Time (Ptt) (04/26/17 00:42) Urinalysis - C+S If Indicated (04/26/17 00:42) Ct Abd/Pel W Iv Contrast(Rout) (04/26/17 00:42) Iv Access Insert/Monitor (04/26/17 00:42) Ecg Monitoring (04/26/17 00:42) Oximetry (04/26/17 00:42) Us Pelvis Comp Batch Room Technician/Non-Preg (04/26/17 ) Ondansetron Inj (Zofran Inj) (04/26/17 00:45) Sodium Chlor 0.9% 1000 Ml Inj (Ns 1000 M (04/26/17 00:42) Sodium Chloride 0.9% Flush (Ns Flush) (04/26/17 00:45) Ed Urine Pregnancytest Poc (04/26/17 00:42) Morphine Inj (Morphine Inj) (04/26/17 00:45) Morphine Inj (Morphine Inj) (04/26/17 00:45) Iohexol 350 Inj (Omnipaque 350 Inj) (04/26/17 01:57) Ketorolac Inj (Toradol Inj) (04/26/17 03:15) Labs Laboratory Tests Test 04/26/17 00:52 04/26/17 03:44 White Blood Count 6.1 TH/MM3 Red Blood Count 3.73 MIL/MM3 Hemoglobin 10.7 GM/DL Hematocrit 31.5 % Mean Corpuscular Volume 84.5 FL Mean Corpuscular Hemoglobin 28.8 PG Mean Corpuscular Hemoglobin Concent 34.1 % Red Cell Distribution Width 14.8 % Platelet Count 363 TH/MM3 Mean Platelet Volume 7.5 FL Neutrophils (%) (Auto) 57.4 % Lymphocytes (%) (Auto) 27.0 % Monocytes (%) (Auto) 12.4 % Eosinophils (%) (Auto) 1.6 % Basophils (%) (Auto) 1.6 % Neutrophils # (Auto) 3.5 TH/MM3 Lymphocytes # (Auto) 1.7 TH/MM3 Monocytes # (Auto) 0.8 TH/MM3 Eosinophils # (Auto) 0.1 TH/MM3 Basophils # (Auto) 0.1 TH/MM3 CBC Comment DIFF FINAL Differential Comment Urine Color LIGHT-YELLOW Urine Turbidity CLEAR Urine pH 7.5 Urine Specific Fiatt 1.007 Urine Protein NEG mg/dL Urine Glucose (UA) NEG mg/dL Urine Ketones TRACE mg/dL Urine Occult Blood NEG Urine Nitrite NEG Urine Bilirubin NEG Urine Urobilinogen LESS THAN 2.0 MG/DL Urine Leukocyte Esterase NEG Urine RBC 1 /hpf Urine WBC LESS THAN 1 /hpf Urine Squamous Epithelial Cells 3 /hpf Microscopic Urinalysis Comment CULT NOT INDICATED Blood Urea Nitrogen 13 MG/DL Creatinine 0.82 MG/DL Random Glucose 94 MG/DL Total Protein 7.5 GM/DL Albumin 4.0 GM/DL Calcium Level 8.9 MG/DL Alkaline Phosphatase 53 U/L Aspartate Amino Transf (AST/SGOT) 16 U/L Alanine Aminotransferase (ALT/SGPT) 15 U/L Total Bilirubin 0.2 MG/DL Sodium Level 141 MEQ/L Potassium Level 3.6 MEQ/L Chloride Level 108 MEQ/L Carbon Dioxide Level 22.2 MEQ/L Anion Gap 11 MEQ/L Estimat Glomerular Filtration Rate 98 ML/MIN [facility] Medical Decision Making Medical Screen Exam Complete: Yes Emergency Medical Condition: Yes Medical Record Reviewed: Yes Differential Diagnosis ovarian cyst vs appendicitis vs UTI Narrative Course Patient is a 31 year old female who comes in complaining of RLQ abdominal pain. Exam shows RLQ tenderness to palpation. IV established, labs sent. Labs show no acute abnormalities. CT abd/pelvis performed shows ovarian masses. US shows ovarian cysts. There is blood flow to both ovaries. Last 24 hours Impressions Abdomen/Pelvis CT 04/26/17 0042 Signed Impressions: Service Date/Time: Wednesday, April 26, 2017 01:47 - CONCLUSION: 2 right ovarian masses are noted as described above best assessed on today's ultrasound. Nilo Allan MD Pelvis Ultrasound 04/26/17 0000 Signed Impressions: Service Date/Time: Wednesday, April 26, 2017 01:20 - CONCLUSION: 1. Simple cyst right ovary as well as a hypoechoic nonvascular mass possibly a hemorrhagic cyst. Six-week followup ultrasound recommended. 2. No free fluid. Nilo Allan MD Patient given IVF, pain medicine. She reports feeling better. She will be discharged with a prescription for pain medicine. Advised to follow up with Batch Room Technician for repeat ultrasound. Advised to return to the ED at any time for any worsening symptoms. Diagnosis Primary Impression: Ovarian cyst Qualified Codes: N83.201 - Unspecified ovarian cyst, right side Patient Instructions: General Instructions, Ovarian Cyst (ED) Additional Instructions: Follow up with gynecology for repeat ultrasound. Take pain medicine as needed. Return to the ED as needed for any worsening symptoms. Scripts Hydrocodone-Acetaminophen ([place]) 5 Mg-325 Mg Tab 1 TAB PO Q6H Y for PAIN, #10 TAB 0 Refills Prov: Kathy Blackmon MD 04/26/17 Disposition: 01 DISCHARGE HOME Condition: Stable Kathy Blackmon MD Apr 26, 2017 03:59
[2017-04-26 04:10] LABS: INTERNATIONAL NORMALIZED RATIO 1.2 RATIO
[2017-04-26 04:19] VITALS: BP 115/87; PULSE 87; RESP 18; O2SAT 100
== END 2017-04-26 04:24 | disposition home or self-care (01) ==
LOC: NEPC 23:38
DX: N83.201 Unspecified ovarian cyst, right side (principal); F17.200 Nicotine dependence, unspecified, uncomplicated
CPT/HCPCS: 74177; 76856; 80053; 81001; 84703; 85025; 85610; 85730; 96361; 96374; 96375; 99285; J1885; J2270; J2405; J7030; Q9967